=== PATIENT | male | born 1995 | race American Indian/Alaskan Native ===

== ENCOUNTER 2020-02-29 11:52 | Emergency (ER) | payer MEDICAID ==
[2020-02-29] MEDS ORDERED: ONDANSETRON 4 MG/2 ML INJ IV ONE (12:57)
--- NOTE | 2020-02-29 12:58 | Emergency Department Report ---
ED General Adult HPI - General Chief complaint: Abdominal Pain Stated complaint: LT SIDE PAIN/DIFFICULTY BREATHING Time Seen by Provider: 02/29/20 12:56 Source: patient Mode of arrival: Ambulatory Limitations: No Limitations - History of Present Illness Initial comments: 25-year-old -[place] male patient presents with complaints of sudden onset of vomiting and left-sided abdominal pain starting this morning. He reports history of a kidney stone, but denies any other medical history. Patient rates his current pain as a 7/10 in severity and denies any hematuria/dysuria/urinary frequency, hematemesis/coffee-ground emesis, diarrhea/melena/hematochezia, or fever/chills/sweats. No recent sick contacts per patient or cough, shortness of breath, or chest pain. Patient reports pain does feel somewhat similar to his previous kidney stone pain. - Related Data Previous Rx's Medication Instructions Recorded Last Taken Type Acetaminophen/Codeine [Tylenol 1 tab PO Q8H PRN #10 tab 02/29/20 Unknown Rx /Codeine # 3 tab] Ciprofloxacin HCl [Ciprofloxacin 500 mg PO Q12HR 7 Days #14 tab 02/29/20 Unknown Rx TAB] Promethazine HCl [Promethazine TAB] 12.5 - 25 mg PO [id number] PRN #15 tab 02/29/20 Unknown Rx Allergies Allergy/AdvReac Type Severity Reaction Status Date / Time No Known Allergies Allergy Unverified 02/29/20 12:03 ED Review of Systems ROS: Stated complaint: LT SIDE PAIN/DIFFICULTY BREATHING Other details as noted in HPI Constitutional: denies: chills, diaphoresis, fever, malaise, weakness ENT: denies: throat pain Respiratory: denies: cough, shortness of breath, wheezing Gastrointestinal: abdominal pain, nausea, vomiting. denies: diarrhea, constipation, hematemesis, melena, hematochezia Genitourinary: denies: urgency, dysuria, frequency, hematuria, discharge, t esticular pain, testicular mass Musculoskeletal: denies: joint swelling, arthralgia Skin: denies: change in color Neurological: denies: headache Hematological/Lymphatic: denies: swollen glands ED Past Medical Hx - Past Medical History Previous Medical History?: No - Surgical History Past Surgical History?: No - Social History Smoking Status: Never Smoker Substance Use Type: None - Medications Home Medications: Home Medications Medication Instructions Recorded Confirmed Last Taken Type Acetaminophen/Codeine [Tylenol 1 tab PO Q8H PRN #10 tab 02/29/20 Unknown Rx /Codeine # 3 tab] Ciprofloxacin HCl [Ciprofloxacin 500 mg PO Q12HR 7 Days #14 tab 02/29/20 Unknown Rx TAB] Promethazine HCl [Promethazine TAB] 12.5 - 25 mg PO [id number] PRN #15 tab 02/29/20 Unknown Rx ED Physical Exam - General Limitations: No Limitations General appearance: alert, in no apparent distress - Head Head exam: Present: atraumatic, normocephalic - Eye Eye exam: Present: normal appearance. Absent: scleral icterus - Neck Neck exam: Present: normal inspection - Respiratory Respiratory exam: Present: normal lung sounds bilaterally. Absent: respiratory distress - Cardiovascular Cardiovascular Exam: Present: regular rate, normal rhythm. Absent: systolic murmur, diastolic murmur, rubs, gallop - GI/Abdominal GI/Abdominal exam: Present: soft, tenderness (Left side and left CVA tenderness), normal bowel sounds. Absent: distended, rebound, rigid - Extremities Exam Extremities exam: Present: normal inspection - Back Exam Back exam: Present: normal inspection - Neurological Exam Neurological exam: Present: alert, oriented X3 - Psychiatric Psychiatric exam: Present: normal affect, normal mood - Skin Skin exam: Present: warm, dry, intact, normal color. Absent: rash, cyanosis, diaphoretic, erythema, pallor, ecchymosis ED Course Vital Signs 02/29/20 02/29/20 02/29/20 12:08 14:03 14:16 Temperature 97.7 F Pulse Rate 57 L Respiratory 20 Rate Blood Pressure 149/95 Blood Pressure [Left] O2 Sat by Pulse 84 99 98 Oximetry 02/29/20 16:09 Temperature Pulse Rate 54 L Respiratory 16 Rate Blood Pressure Blood Pressure 140/90 [Left] O2 Sat by Pulse 99 Oximetry ED Medical Decision Making - Lab Data Result diagrams: 02/29/20 12:34 02/29/20 12:34 Lab Results 02/29/20 02/29/20 02/29/20 Range/Units 12:34 12:34 12:34 WBC 10.7 (4.5-11.0) K/mm3 RBC 4.74 (3.65-5.03) M/mm3 Hgb 15.4 H (11.8-15.2) gm/dl Hct 45.1 (35.5-45.6) % MCV 95 H (84-94) fl MCH 32 (28-32) pg MCHC 34 (32-34) % RDW 12.8 L (13.2-15.2) % Plt Count 164 (140-440) K/mm3 Lymph % (Auto) 22.4 (13.4-35.0) % [place] % (Auto) 7.2 (0.0-7.3) % Eos % (Auto) 2.6 (0.0-4.3) % Baso % (Auto) 0.6 (0.0-1.8) % Lymph # (Auto) 2.4 (1.2-5.4) K/mm3 [place] # (Auto) 0.8 (0.0-0.8) K/mm3 Eos # (Auto) 0.3 (0.0-0.4) K/mm3 Baso # (Auto) 0.1 (0.0-0.1) K/mm3 Seg Neutrophils % 67.2 (40.0-70.0) % Seg Neutrophils # 7.2 (1.8-7.7) K/mm3 Sodium 137 (137-145) mmol/L Potassium 3.9 (3.6-5.0) mmol/L Chloride 100.3 (98-107) mmol/L Carbon Dioxide 21 L (22-30) mmol/L Anion Gap 20 mmol/L BUN 8 L (9-20) mg/dL Creatinine 0.7 L (0.8-1.3) mg/dL Estimated GFR > 60 ml/min BUN/Creatinine Ratio 11 % Glucose 124 H (75-100) mg/dL Calcium 9.5 (8.4-10.2) mg/dL Total Bilirubin 0.80 (0.1-1.2) mg/dL AST 14 (5-40) units/L ALT 10 (7-56) units/L Alkaline Phosphatase 75 (35-129) units/L Total Protein 7.6 (6.3-8.2) g/dL Albumin 4.7 (3.9-5) g/dL Albumin/Globulin Ratio 1.6 % Lipase 13 (13-60) units/L Urine Color (Yellow) Urine Turbidity (Clear) Urine pH (5.0-7.0) Ur Specific [place] (1.003-1.030) Urine Protein (Negative) mg/dL Urine Glucose (UA) (Negative) mg/dL Urine Ketones (Negative) mg/dL Urine Blood (Negative) Urine Nitrite (Negative) Urine Bilirubin (Negative) Urine Urobilinogen (<2.0) mg/dL Ur Leukocyte Esterase (Negative) Urine WBC (Auto) (0.0-6.0) /HPF Urine RBC (Auto) (0.0-6.0) /HPF Calcium Oxalate Crystal Urine Mucus /HPF 02/29/20 Range/Units 13:31 WBC (4.5-11.0) K/mm3 RBC (3.65-5.03) M/mm3 Hgb (11.8-15.2) gm/dl Hct (35.5-45.6) % MCV (84-94) fl MCH (28-32) pg MCHC (32-34) % RDW (13.2-15.2) % Plt Count (140-440) K/mm3 Lymph % (Auto) (13.4-35.0) % [place] % (Auto) (0.0-7.3) % Eos % (Auto) (0.0-4.3) % Baso % (Auto) (0.0-1.8) % Lymph # (Auto) (1.2-5.4) K/mm3 [place] # (Auto) (0.0-0.8) K/mm3 Eos # (Auto) (0.0-0.4) K/mm3 Baso # (Auto) (0.0-0.1) K/mm3 Seg Neutrophils % (40.0-70.0) % Seg Neutrophils # (1.8-7.7) K/mm3 Sodium (137-145) mmol/L Potassium (3.6-5.0) mmol/L Chloride (98-107) mmol/L Carbon Dioxide (22-30) mmol/L Anion Gap mmol/L BUN (9-20) mg/dL Creatinine (0.8-1.3) mg/dL Estimated GFR ml/min BUN/Creatinine Ratio % Glucose (75-100) mg/dL Calcium (8.4-10.2) mg/dL Total Bilirubin (0.1-1.2) mg/dL AST (5-40) units/L ALT (7-56) units/L Alkaline Phosphatase (35-129) units/L Total Protein (6.3-8.2) g/dL Albumin (3.9-5) g/dL Albumin/Globulin Ratio % Lipase (13-60) units/L Urine Color Yellow (Yellow) Urine Turbidity Clear (Clear) Urine pH 6.0 (5.0-7.0) Ur Specific [place] 1.020 (1.003-1.030) Urine Protein <15 mg/dl (Negative) mg/dL Urine Glucose (UA) Neg (Negative) mg/dL Urine Ketones Neg (Negative) mg/dL Urine Blood Mod (Negative) Urine Nitrite Neg (Negative) Urine Bilirubin Neg (Negative) Urine Urobilinogen 2.0 (<2.0) mg/dL Ur Leukocyte Esterase Sm (Negative) Urine WBC (Auto) 20.0 H (0.0-6.0) /HPF Urine RBC (Auto) 105.0 (0.0-6.0) /HPF Calcium Oxalate Crystal 3+ Urine Mucus 3+ /HPF - Radiology Data Radiology results: report reviewed CT abdomen pelvis wo con INDICATION / CLINICAL INFORMATION: MAIN. TECHNIQUE: All CT scans at this location are performed using CT dose reduction for ALARA by means of automated exposure control. COMPARISON: None available. FINDINGS: No free fluid is seen in the abdomen. There is very little intra-abdominal fat making separation structures difficult. Small stones are seen in both kidneys without definite evidence of hydronephrosis. The liver, spleen, pancreas, adrenal glands and great vessels are normal. In the pelvis, a trace amount of fluid is present. No enlarged lymph nodes are identified. The bladder is normal. The appendix is not well visualized. Calcification on the right is probably outside of the urinary tract. IMPRESSION: 1. Very little intra-abdominal fat making separation of structures difficult 2. Small nonobstructing bilateral renal stones - Medical Decision Making 25-year-old -[place] male patient presents with complaints of sudden onset of vomiting and left-sided abdominal pain starting this morning. He reports history of a kidney stone, but denies any other medical history. Patient rates his current pain as a 7/10 in severity and denies any hematuria/d ysuria/urinary frequency, hematemesis/coffee-ground emesis, diarrhea/melena/hematochezia, or fever/chills/sweats. No recent sick contacts per patient or cough, shortness of breath, or chest pain. Patient reports pain does feel somewhat similar to his previous kidney stone pain. On exam, patient has left abdominal tenderness and left CVA tenderness. CT without contrast is negative for any kidney stones. UA shows 105 RBCs and 20 WBCs. Will treat for pyelonephritis. 1 g IV Rocephin given and patient discharged home on Cipro. Recommend follow-up with primary care within 3 days. His vitals are normal, he is well-appearing, his pain is controlled, and he is stable for discharge home. Strict return precautions were discussed in detail with patient who verbalizes understanding. Critical care attestation.: If time is entered above; I have spent that time in minutes in the direct care of this critically ill patient, excluding procedure time. ED Disposition Clinical Impression: Pyelonephritis, acute Disposition: DC-01 TO HOME OR SELFCARE Is pt being admited?: No Condition: Stable Instructions: Acute Pyelonephritis (ED) Prescriptions: Promethazine HCl [Promethazine TAB] 12.5 - 25 mg PO [id number] PRN #15 tab PRN Reason: Nausea Ciprofloxacin HCl [Ciprofloxacin TAB] 500 mg PO Q12HR 7 Days #14 tab Acetaminophen/Codeine [Tylenol /Codeine # 3 tab] 1 tab PO Q8H PRN #10 tab PRN Reason: Pain , Severe (7-10) Referrals: PRIMARY CARE, [Primary Care Provider] - 3-5 Days
[2020-02-29 13:21] LABS: Basophils # (Auto) 0.1 K/mm3 (0.0-0.1); Basophils % (Auto) 0.6 % (0.0-1.8); Eosinophils # (Auto) 0.3 K/mm3 (0.0-0.4); Eosinophils % (Auto) 2.6 % (0.0-4.3); Hematocrit 45.1 % (35.5-45.6); Hemoglobin 15.4 gm/dl (11.8-15.2); Lymphocytes # (Auto) 2.4 K/mm3 (1.2-5.4); Lymphocytes % (Auto) 22.4 % (13.4-35.0); Mean Corpuscular HGB Conc 34 % (32-34); Mean Corpuscular Volume 95 fl (84-94); Monocytes # (Auto) 0.8 K/mm3 (0.0-0.8); Monocytes % (Auto) 7.2 % (0.0-7.3); Red Blood Count 4.74 M/mm3 (3.65-5.03); Red Cell Distribution Width 12.8 % (13.2-15.2)
[2020-02-29 13:27] LABS: Platelet Count 164 K/mm3 (140-440)
[2020-02-29] MEDS ORDERED: MORPHINE 4 MG/1 ML INJ IV ONE (13:44)
[2020-02-29] MEDS ORDERED: SODIUM CHLORIDE 0.9% 1000 ML 1,000 ML IV ONE (13:44)
[2020-02-29 13:49] LABS: Bilirubin,Urine NEG (Negative); Blood,Urine MOD (Negative); Calcium Oxalate Crystals,Urine 3+; Color,Urine Yellow (Yellow); Mucus,Urine 3+ /HPF; Protein,Urine <15 mg/dL mg/dL (Negative)
[2020-02-29 14:51] LABS: Alanine Aminotransferase 10 units/L (7-56); Albumin 4.7 g/dL (3.9-5); Blood Urea Nitrogen 8 mg/dL (9-20); Calcium 9.5 mg/dL (8.4-10.2); Hemolysis Index 7
--- NOTE | 2020-02-29 14:52 | Cat Scan Report ---
CT abdomen pelvis wo con INDICATION / CLINICAL INFORMATION: MAIN. TECHNIQUE: All CT scans at this location are performed using CT dose reduction for ALARA by means of automated e xposure control. COMPARISON: None available. FINDINGS: No free fluid is seen in the abdomen. There is very little intra-abdominal fat making separation stru ctures difficult. Small stones are seen in both kidneys without definite evidence of hydronephrosis. The liver, spleen, pancreas, adrenal glands and great vessels are normal. In the pelvis, a trace amount of fluid is present. No enlarged lymph nodes are identified. The bladde r is normal. The appendix is not well visualized. Calcification on the right is probably outside of t he urinary tract. IMPRESSION: 1. Very little intra-abdominal fat making separation of structures difficult 2. Small nonobstructing bilateral renal stones Signer Name: Duran Gayle MD FACR Signed: 02/29/2020 2:48 PM Workstation Name: [id number]
[2020-02-29 14:55] LABS: BUN/Creatinine Ratio 11
[2020-02-29] MEDS ORDERED: cefTRIAXone/NS 1 GM/50 ML 1 GM/50 ML BAG IV ONE (15:45)
[2020-02-29 16:09] VITALS: BP 140/90
== END 2020-02-29 16:09 | disposition home or self-care (01) ==
LOC: ED 11:52
DX: N10 Acute pyelonephritis (principal); Z79.2 Long term (current) use of antibiotics; Z79.899 Other long term (current) drug therapy
CPT/HCPCS: 36415; 74176; 80053; 81001; 83690; 85025; 87086; 96361; 96374; 96375; 99284; J0696; J2270; J2405

== ENCOUNTER 2020-08-24 04:41 | Emergency (ER) | payer MEDICAID ==
[2020-08-24 05:01] VITALS: BP 150/105
[2020-08-24 05:31] LABS: Basophils % (Auto) 0.6 % (0.0-1.8); Eosinophils # (Auto) 0.2 K/mm3 (0.0-0.4); Eosinophils % (Auto) 3.1 % (0.0-4.3); Hemoglobin 15.7 gm/dl (11.8-15.2); Lymphocytes # (Auto) 3.4 K/mm3 (1.2-5.4); Mean Corpuscular HGB Conc 33 % (32-34); Mean Corpuscular Volume 94 fl (84-94); Monocytes # (Auto) 0.7 K/mm3 (0.0-0.8); Monocytes % (Auto) 8.9 % (0.0-7.3); Red Blood Count 5.03 M/mm3 (3.65-5.03)
[2020-08-24 05:42] LABS: Platelet Count 202 K/mm3 (140-440)
[2020-08-24 05:55] LABS: Alanine Aminotransferase 11 units/L (7-56); Albumin 4.5 g/dL (3.9-5); BUN/Creatinine Ratio 21; Blood Urea Nitrogen 17 mg/dL (9-20); Calcium 9.6 mg/dL (8.4-10.2); Hemolysis Index 3
[2020-08-24] MEDS ORDERED: FAMOTIDINE 20 MG TAB PO ONE (05:57)
[2020-08-24] MEDS ORDERED: HYOSCYAMINE SUBL 0.125 MG TAB SL ONE (05:57)
[2020-08-24] MEDS ORDERED: ONDANSETRON 4 MG/2 ML INJ IV ONE (06:10)
[2020-08-24] MEDS ORDERED: SODIUM CHLORIDE 0.9% 1000 ML 1,000 ML IV ONE (06:10)
[2020-08-24 06:21] LABS: Bilirubin,Urine NEG (Negative); Blood,Urine LG (Negative); Color,Urine Amber (Yellow); Mucus,Urine 3+ /HPF; Urobilinogen,Urine < 2.0 mg/dL (<2.0)
--- NOTE | 2020-08-24 06:32 | Event Note ---
ED Screening Note Date of service: 08/24/20 Time: 06:11 ED Screening Note: 25-year-old -[place] male presents to the emergency room for 3-day history of nausea vomiting abdominal pain. Patient states that it started after eating [employer]. Patient denies any diarrhea. He states he last vomited 1 hour ago. He denies any fever no chills. Denies any cigarette smoking no marijuana smoking. Currently takes no medications on a daily basis does not have a past medical history and has no known drug allergies. Patient states that he last took an ibuprofen once last night and did not help. This initial assessment/diagnostic orders/clinical plan/treatment(s) is/are subject to change based on patients health status, clinical progression and re- assessment by fellow clinical providers in the ED. Further treatment and workup at subsequent clinical providers discretion. Patient/guardian urged not to elope from the ED as their condition may be serious if not clinically assessed and managed. Initial orders include: Basic labs, Levsin, Pepcid p.o. Patient vomited IV with normal saline Zofran 4 mg IV. Tenderness to the abdomen ordered a CT with contrast.
--- NOTE | 2020-08-24 07:10 | Cat Scan Report ---
CT ABDOMEN AND PELVIS WITH IV CONTRAST INDICATION: Abdominal tenderness nausea and vomiting x 3 days. COMPARISON: CT 02/29/2020 TECHNIQUE: All CT scans at this facility use dose modulation, automated exposure control, iterative reconstructi on or weight based dosing, when appropriate, to reduce radiation dose to as low as reasonably achieva ble. FINDINGS: Lung Bases: No significant abnormality. Skeletal System: No acute abnormality. ABDOMEN: Liver: No significant abnormality. Gallbladder: No significant abnormality. Bile Ducts: No significant abnormality. Pancreas: No significant abnormality. Spleen: No significant abnormality. Adrenals: No significant abnormality. Right Kidney: There is a 4-5 mm obstructing stone in the proximal right ureter which results in mild right hydronephrosis. There is a punctate nonobstructing calyceal stone. Left Kidney: Punctate stones. No hydronephrosis. Upper GI tract: No significant abnormality. Lymph Nodes: No significant adenopathy. Aorta: No significant abnormality. Additional Findings: No significant abnormality. PELVIS: Colon: No acute abnormality. Urinary Bladder and Distal Ureters: No significant abnormality. Appendix: Not visualized. Lymph Nodes: No significant adenopathy. Additional Findings: None. IMPRESSION: 1. 4-5 mm obstructing stone proximal right ureter with mild hydronephrosis. 2. Incidental findings, as above. Signer Name: Blake Christopher MD Signed: 08/24/2020 7:06 AM Workstation Name: [id number]
[2020-08-24] MEDS ORDERED: KETOROLAC 30 MG/1 ML INJ IV ONE (07:48)
--- NOTE | 2020-08-24 07:58 | Emergency Department Report ---
<DYLANFANG METZ - Last Filed: 08/24/20 08:32> ED General Adult HPI - General Chief complaint: Abdominal Pain Stated complaint: STOMACH PAIN/RT SIDE/TROUBLE BREATHING Time Seen by Provider: 08/24/20 07:22 Source: patient Mode of arrival: Ambulatory Limitations: No Limitations - History of Present Illness Initial comments: 25-year-old -[place] Islander male with history of nephrolithiasis presents to the emergency room for 3-day history of nausea vomiting abdominal pain. Patient states that it started after eating [employer], however nobody else who ate the same food developed similar symptoms. He states he last vomited 1 hour ago. Denies any cigarette smoking no marijuana smoking. Currently takes no medications on a daily basis does not have a past medical history and has no known drug allergies. Patient states that he last took an ibuprofen once last night and did not help. Patient has not required lithotripsy for his prior kidney stones. Denies fever, chills, diarrhea, constipation, urinary retention, back pain. Denies all other complaints at this time. - Related Data Previous Rx's Medication Instructions Recorded Last Taken Type Acetaminophen/Codeine [Tylenol 1 tab PO Q8H PRN #10 tab 02/29/20 Unknown Rx /Codeine # 3 tab] Ciprofloxacin HCl [Ciprofloxacin 500 mg PO Q12HR 7 Days #14 tab 02/29/20 Unknown Rx TAB] Promethazine HCl [Promethazine TAB] 12.5 - 25 mg PO [id number] PRN #15 tab 02/29/20 Unknown Rx HYDROcodone/APAP 5-325 [Beeler 1 each PO Q4H PRN #10 tablet 08/24/20 Unknown Rx 5/325] Ketorolac [Toradol] 10 mg PO Q6H PRN #20 tablet 08/24/20 Unknown Rx Ondansetron [Zofran Odt] 4 mg PO Q8HR #20 tab.rapdis 08/24/20 Unknown Rx Tamsulosin [Flomax] 0.4 mg PO QDAY #5 cap 08/24/20 Unknown Rx Allergies Allergy/AdvReac Type Severity Reaction Status Date / Time No Known Allergies Allergy Verified 08/24/20 04:59 ED Review of Systems Other: GENERAL: Negative for fever, chills, weight change, anorexia, fatigue. ENT: Negative for ear pain, difficulty hearing, sore throat, nasal congestion, epistaxis. CARDIOVASCULAR: Negative for chest pain, palpitations, lower extremity swelling. PULMONARY: Negative for cough, dyspnea, wheezing, orthopnea, cyanosis. GASTROINTESTINAL: Positive for abdominal pain, nausea, vomiting. MUSCULOSKELETAL: Negative for joint pain, joint swelling, myalgias, back pain, neck pain. NEUROLOGICAL: Negative for headache, seizure, syncope, paresthesias, weakness. INTEGUMENTARY: Negative for erythema, rash, diaphoresis, laceration, ecchymosis. HEMATOLOGICAL: Negative for hemoptysis, hematemesis, hematochezia, hematuria. PSYCHIATRIC: Negative for hallucinations, suicidal ideation, homicidal ideation, anxiety, depression. ED Past Medical Hx - Past Medical History Previous Medical History?: No - Surgical History Past Surgical History?: No - Social History Smoking Status: Never Smoker Substance Use Type: None - Medications Home Medications: Home Medications Medication Instructions Recorded Confirmed Last Taken Type Acetaminophen/Codeine [Tylenol 1 tab PO Q8H PRN #10 tab 02/29/20 Unknown Rx /Codeine # 3 tab] Ciprofloxacin HCl [Ciprofloxacin 500 mg PO Q12HR 7 Days #14 tab 02/29/20 Unknown Rx TAB] Promethazine HCl [Promethazine TAB] 12.5 - 25 mg PO [id number] PRN #15 tab 02/29/20 Unknown Rx HYDROcodone/APAP 5-325 [[place] 1 each PO Q4H PRN #10 tablet 08/24/20 Unknown Rx 5/325] Ketorolac [Toradol] 10 mg PO Q6H PRN #20 tablet 08/24/20 Unknown Rx Ondansetron [Zofran Odt] 4 mg PO Q8HR #20 tab.rapdis 08/24/20 Unknown Rx Tamsulosin [Flomax] 0.4 mg PO QDAY #5 cap 08/24/20 Unknown Rx ED Physical Exam - General Limitations: No Limitations - Other Other exam information: General: Awake and alert. No acute distress. Head: Atraumatic, normocephalic. Eyes: EOMI. Pupils are equal and round. Normal sclera and conjunctiva. ENT: Oral mucosa is moist. Normal pharyngeal exam. Neck: Supple. No lymphadenopathy. Pulmonary: No respiratory distress. Clear to auscultation bilaterally. Cardiac: Regular rate and rhythm. Pulses are palpable and equal bilaterally. No lower extremity cyanosis or edema. Skin: Warm and dry. No rashes. Abdomen: Soft, non-protuberant. Right flank tenderness without guarding, rigidity, or rebound. Bowel sounds are normal. No organomegaly or masses noted. Back: Normal alignment. Right CVA tenderness. Extremities: Symmetrical. Full range of motion intact. Neurological: Alert and oriented, appropriately interactive, no focal deficits. Psych: Cooperative. Appropriate mood and affect. Speech is evenly metered. Thoughts are logically construed. ED Medical Decision Making - Lab Data Result diagrams: 08/24/20 05:08 08/24/20 05:08 - Radiology Data [facility] [address] [place] [address] Cat Scan Report Signed Patient: DANA NUÑEZ MR#: [id number] : 1995 Acct:[id number] Age/Sex: 25 / M ADM Date: 08/24/20 Loc: ED Attending Dr: Ordering Physician: SAMEER STANTON Date of Service: 08/24/20 Procedure(s): CT abdomen pelvis w con Accession Number(s): [id number] cc: SAMEER STANTON CT ABDOMEN AND PELVIS WITH IV CONTRAST INDICATION: Abdominal tenderness nausea and vomiting x 3 days. COMPARISON: CT 02/29/2020 TECHNIQUE: All CT scans at this facility use dose modulation, automated exposure control, iterative reconstruction or weight based dosing, when appropriate, to reduce radiation dose to as low as reasonably achievable. FINDINGS: Lung Bases: No significant abnormality. Skeletal System: No acute abnormality. ABDOMEN: Liver: No significant abnormality. Gallbladder: No significant abnormality. Bile Ducts: No significant abnormality. Pancreas: No significant abnormality. Spleen: No significant abnormality. Adrenals: No significant abnormality. Right Kidney: There is a 4-5 mm obstructing stone in the proximal right ureter which results in mild right hydronephrosis. There is a punctate nonobstructing calyceal stone. Left Kidney: Punctate stones. No hydronephrosis. Upper GI tract: No significant abnormality. Lymph Nodes: No significant adenopathy. Aorta: No significant abnormality. Additional Findings: No significant abnormality. PELVIS: Colon: No acute abnormality. Urinary Bladder and Distal Ureters: No significant abnormality. Appendix: Not visualized. Lymph Nodes: No significant adenopathy. Additional Findings: None. IMPRESSION: 1. 4-5 mm obstructing stone proximal right ureter with mild hydronephrosis. 2. Incidental findings, as above. Signer Name: Blake Christopher MD Signed: 08/24/2020 7:06 AM Workstation Name: [id number] Transcribed By: ALISA Dictated By: Blake Christopher MD Electronically Authenticated By: Blake Christopher MD Signed Date/Time: 08/24/20705 DD/ 1 TD/TT: - Medical Decision Making Differential diagnosis including but not limited to: appendicitis, pyelonephritis, nephrolithiasis, cystitis, cholecystitis, cholelithiasis, aortic aneurysm/dissection On reevaluation, patient remains stable. Repeat abdominal exam is benign. CT of the abdomen/pelvis shows 4-5 mm obstructing stone proximal right ureter with mild hydronephrosis. Normal renal function without evidence of concomitant infection. Patient is otherwise healthy. Vital signs are stable. He is afebrile. He is tolerating PO fluids without difficulty. He is urinating without difficulty. He has never required lithotripsy before. No clinical indication for emergent urological consultation or hospital admission at this time. Patient is an appropriate candidate for outpatient management with close urology follow-up. He has been prescribed appropriate analgesics and referred to Dr. Almeida. Patient has been provided with a copy of today's imaging results to take with him to his follow-up appointment. Emphasized the importance of calling the office today to arrange for reevaluation within 48 hours. Patient expressed understanding and is agreeable to plan of care. Strict return precautions provided. Case discussed with Dr. Rodriguez, attending emergency physician, who agrees with plan of care and recommended Rx for Flomax and Toradol. Repeat exam is unremarkable and benign. History, exam, diagnostic testing, and current condition do not suggest worrisome pathology to warrant further testing, continued ED treatment, admission, or surgical evaluation at this point. Given the low probability of a significant medical illness, it would be more likely to result in harm than benefit to perform further testing at this stage. Discussed findings, presumptive diagnosis, need for follow-up and specific signs/symptoms that should prompt immediate return to the emergency department. Instructions were explained in detail to the patient in addition to giving written discharge information. Patient expressed understanding and was given the opportunity to ask questions, all of which were satisfactorily answered prior to discharge home. ED Disposition Clinical Impression: Right nephrolithiasis Disposition: DC-01 TO HOME OR SELFCARE Is pt being admited?: No Does the pt Need Aspirin: No Condition: Stable Instructions: Kidney Stones, [id number] Additional Instructions: Take Toradol with food as directed for pain. Take Zofran as directed for nausea/vomiting. Take Flomax as directed. If these medications are not sufficient in controlling your pain, take Beeler with food as directed. Do not drive or operate heavy machinery while taking this medication. Do not consume alcohol taking this medication. Drink plenty of fluids. You must follow-up with Dr. Almeida, urologist, this week. Call today to schedule an appointment. See referral information below. Return to the emergency department immediately for new or worsening symptoms. Specifically, return to the emergency department immediately for fever, worsening pain, dehydration, increased difficulty urinating, or any other concerns. Prescriptions: Tamsulosin [Flomax] 0.4 mg PO QDAY #5 cap HYDROcodone/APAP 5-325 [Beeler 5/325] 1 each PO Q4H PRN #10 tablet PRN Reason: Pain Ketorolac [Toradol] 10 mg PO Q6H PRN #20 tablet PRN Reason: Pain Ondansetron [Zofran Odt] 4 mg PO Q8HR #20 tab.rapdis Referrals: ABRAHAM ALMEIDA MD [Staff Physician] - 3-5 Days Time of Disposition: 07:57 <ALEXIS RODRIGUEZ - Last Filed: 08/24/20 15:20> ED Review of Systems ROS: Stated complaint: STOMACH PAIN/RT SIDE/TROUBLE BREATHING Other details as noted in HPI ED Course Vital Signs 08/24/20 08/24/20 04:56 07:53 Temperature 97.8 F Pulse Rate 59 L Respiratory 16 18 Rate Blood Pressure 150/105 O2 Sat by Pulse 100 Oximetry ED Medical Decision Making - Lab Data Result diagrams: 08/24/20 05:08 08/24/20 05:08 Vital Signs 08/24/20 08/24/20 04:56 07:53 Temperature 97.8 F Pulse Rate 59 L Respiratory 16 18 Rate Blood Pressure 150/105 O2 Sat by Pulse 100 Oximetry Lab Results 08/24/20 08/24/20 08/24/20 Range/Units 05:08 05:08 05:56 WBC 7.8 (4.5-11.0) K/mm3 RBC 5.03 (3.65-5.03) M/mm3 Hgb 15.7 H (11.8-15.2) gm/dl Hct 47.0 H (35.5-45.6) % MCV 94 (84-94) fl MCH 31 (28-32) pg MCHC 33 (32-34) % RDW 13.0 L (13.2-15.2) % Plt Count 202 (140-440) K/mm3 Lymph % (Auto) 44.0 H (13.4-35.0) % [place] % (Auto) 8.9 H (0.0-7.3) % Eos % (Auto) 3.1 (0.0-4.3) % Baso % (Auto) 0.6 (0.0-1.8) % Lymph # (Auto) 3.4 (1.2-5.4) K/mm3 [place] # (Auto) 0.7 (0.0-0.8) K/mm3 Eos # (Auto) 0.2 (0.0-0.4) K/mm3 Baso # (Auto) 0.0 (0.0-0.1) K/mm3 Seg Neutrophils % 43.4 (40.0-70.0) % Seg Neutrophils # 3.4 (1.8-7.7) K/mm3 Sodium 137 (137-145) mmol/L Potassium 4.1 (3.6-5.0) mmol/L Chloride 102.1 (98-107) mmol/L Carbon Dioxide 23 (22-30) mmol/L Anion Gap 16 mmol/L BUN 17 (9-20) mg/dL Creatinine 0.8 (0.8-1.3) mg/dL Estimated GFR > 60 ml/min BUN/Creatinine Ratio 21 % Glucose 110 H (75-100) mg/dL Calcium 9.6 (8.4-10.2) mg/dL Total Bilirubin 0.40 (0.1-1.2) mg/dL AST 16 (5-40) units/L ALT 11 (7-56) units/L Alkaline Phosphatase 69 (35-129) units/L Total Protein 7.5 (6.3-8.2) g/dL Albumin 4.5 (3.9-5) g/dL Albumin/Globulin Ratio 1.5 % Lipase 16 (13-60) units/L Urine Color [place] (Yellow) Urine Turbidity Slightly-cloudy (Clear) Urine pH 5.0 (5.0-7.0) Ur Specific [place] 1.031 H (1.003-1.030) Urine Protein 100 mg/dl (Negative) mg/dL Urine Glucose (UA) Neg (Negative) mg/dL Urine Ketones Tr (Negative) mg/dL Urine Blood Lg (Negative) Urine Nitrite Neg (Negative) Urine Bilirubin Neg (Negative) Urine Urobilinogen < 2.0 (<2.0) mg/dL Ur Leukocyte Esterase Neg (Negative) Urine WBC (Auto) 1.0 (0.0-6.0) /HPF Urine RBC (Auto) 103.0 (0.0-6.0) /HPF U Epithel Cells (Auto) 3.0 (0-13.0) /HPF Urine Mucus 3+ /HPF - Radiology Data Radiology results: report reviewed, image reviewed Critical care attestation.: If time is entered above; I have spent that time in minutes in the direct care of this critically ill patient, excluding procedure time. ED Disposition Is pt being admited?: No Does the pt Need Aspirin: No
== END 2020-08-24 08:15 | disposition home or self-care (01) ==
LOC: ED 04:41
DX: N20.0 Calculus of kidney (principal); Z79.899 Other long term (current) drug therapy
CPT/HCPCS: 36415; 74177; 80053; 81001; 83690; 85025; 96361; 96374; 96375; 99284; J1885; J2405; J7030; Q9967